=== PATIENT | female | born 1960 | race Hispanic/Latino ===

== ENCOUNTER 2020-10-26 02:52 | Inpatient (IN) | payer OTHER ==
[~2020-10-26] VITALS: Ht 149.9 cm; Wt 65.5 kg
[2020-10-26] MEDS ORDERED: KETOROLAC TROMETHAMINE 30 MG/ML VIAL IV STA (03:25)
[2020-10-26] MEDS ORDERED: ONDANSETRON HCL INJ 2MG/ML 2ML 2 MG/ML VIAL IV STA (03:25)
[2020-10-26] MEDS ORDERED: FAMOTIDINE 20 MG/2 ML VIAL IV STA (03:25)
[2020-10-26] MEDS ORDERED: KETOROLAC TROMETHAMINE 30 MG/ML VIAL ONE (03:29)
[2020-10-26] MEDS ORDERED: SODIUM CHLORIDE 0.9% 1000ML 1,000 ML ONE ×2 (03:29→07:29)
[2020-10-26] MEDS ORDERED: ONDANSETRON HCL INJ 2MG/ML 2ML 2 MG/ML VIAL ONE ×2 (03:29→10:49)
[2020-10-26] MEDS ORDERED: SODIUM CHLORIDE 0.9% 1000ML 1,000 ML IV SCH ×2 (03:30→04:30)
[2020-10-26] MEDS ORDERED: FAMOTIDINE 20 MG/2 ML VIAL IV ONE ×2 (03:32→10:49)
[2020-10-26] MEDS ORDERED: SODIUM CHLORIDE 0.9% 50ML 50 ML ONE (03:40)
[2020-10-26] MEDS ORDERED: IOPAMIDOL 370 MG/ML 200 ML INFUS..BTL INJ ONE (03:40)
[2020-10-26] MEDS ORDERED: MORPHINE SULFATE INJ 4 MG/ML INJ 1ML IV STA (03:47)
[2020-10-26] MEDS ORDERED: PROMETHAZINE 12.5MG/ NACL 0.9% 12.5 MG/50 ML BAG IV ONE (04:00)
[2020-10-26] MEDS ORDERED: KCL 20MEQ/.9 SOD CHL 1,000 ML IV SCH (04:00)
[2020-10-26] MEDS ORDERED: PROMETHAZINE HCL (IM) 25 MG/ML VIAL IM ONE ×2 (04:13→07:29)
[2020-10-26] MEDS ORDERED: POTASSIUM CHLORIDE 20MEQ/100ML 100 ML ONE (04:13)
[2020-10-26] MEDS ORDERED: MORPHINE SULFATE INJ 4 MG/ML INJ 1ML ONE ×2 (04:14→10:49)
[2020-10-26] MEDS ORDERED: POTASSIUM CHLORIDE 20MEQ/100ML 100 ML IV SCH (04:30)
[2020-10-26] MEDS ORDERED: MAGNESIUM SULFATE 2GM/50ML 50 ML IV ONE ×2 (05:15→05:18)
[2020-10-26] MEDS ORDERED: LIDOCAINE VISC 2% SOLN 15 ML UDC PO ONE (05:30)
[2020-10-26] MEDS ORDERED: DONNATAL/LIDOCAINE/MAALOX 30 ML SUSP PO ONE (05:30)
[2020-10-26] MEDS ORDERED: MAGNESIUM/ALUMINUM/SIMETHICONE 30 ML UDC PO ONE (05:30)
[2020-10-26] MEDS ORDERED: BELLADONNA ALK/PHENOBARBITAL 5 ML UDC PO ONE (05:30)
[2020-10-26] MEDS ORDERED: BELLADONNA ALK/PHENOBARBITAL 5 ML UDC ONE (05:59)
[2020-10-26] MEDS ORDERED: MAGNESIUM/ALUMINUM/SIMETHICONE 30 ML UDC ONE (05:59)
[2020-10-26] MEDS ORDERED: LIDOCAINE VISC 2% SOLN 15 ML UDC ONE (05:59)
[2020-10-26] MEDS ORDERED: ONDANSETRON ODT4 MG PO (06:05)
[2020-10-26] MEDS ORDERED: NEXIUM40 MG PO (06:06)
[2020-10-26] MEDS ORDERED: SUCRALFATE1 GM PO (06:07)
[2020-10-26] MEDS: PROMETHAZINE HCL (IM) 25 MG/ML VIAL IM PRN ×2 (07:20→13:33)
[2020-10-26] MEDS: MORPHINE SULFATE INJ 4 MG/ML INJ 1ML IV PRN ×4 (07:20→20:01)
[2020-10-26] MEDS ORDERED: MORPHINE SULFATE INJ 2 MG/ML SYR IV PRN (07:30)
[2020-10-26] MEDS ORDERED: DIPHENHYDRAMINE HCL INJ 50 MG/ML VIAL IV PRN (07:30)
[2020-10-26] MEDS: SODIUM CHLORIDE 0.9% 1000ML 1,000 ML IV SCH ×3 (07:40→21:00)
[2020-10-26 09:07] LABS: MAGNESIUM 2.5 MG/DL (1.3-2.1); POTASSIUM 3.2 mmol/L (3.5-5.1)
[2020-10-26 09:25] LABS: CREATINE KINASE MB 0.9 ng/mL (0-5.0)
[2020-10-26] MEDS: FAMOTIDINE 20 MG/2 ML VIAL IV SCH ×2 (10:42→16:09)
[2020-10-26] MEDS: ONDANSETRON HCL INJ 2MG/ML 2ML 2 MG/ML VIAL IV PRN (10:42)
[2020-10-26 12:29] VITALS: BP 155/64
[2020-10-26 12:55] VITALS: BP 155/64
[2020-10-26 13:11] VITALS: BP 155/64
[2020-10-26] MEDS ORDERED: HYDRALAZINE HCL 20 MG/ML VIAL IV PRN (14:45)
[2020-10-26] MEDS ORDERED: PROMETHAZINE 12.5MG/ NACL 0.9% 12.5 MG/50 ML BAG IV PRN (15:45)
[2020-10-26] MEDS ORDERED: LORAZEPAM INJ 2 MG/ML VIAL IV ONE (16:00)
[2020-10-26 16:09] VITALS: BP 153/74
[2020-10-26 19:20] VITALS: BP 153/63
[2020-10-26] MEDS: HYDROXYZINE HCL 25 MG TAB PO PRN (19:53)
[2020-10-26 22:42] VITALS: BP 153/63
[2020-10-27] VITALS (8 sets, daily range): BP systolic 93–116; BP diastolic 47–60
[2020-10-27] MEDS ORDERED: METOCLOPRAMIDE HCL 10 MG/2ML VIAL IV STA (00:40)
[2020-10-27] MEDS: MORPHINE SULFATE INJ 4 MG/ML INJ 1ML IV PRN ×5 (01:16→19:55)
[2020-10-27] MEDS: ONDANSETRON HCL INJ 2MG/ML 2ML 2 MG/ML VIAL IV PRN ×5 (01:17→19:55)
[2020-10-27 05:09] LABS: BASOPHILS # (AUTO) 0.1 (0.0-0.1); BASOPHILS % 1.4 % (0.0-1.0); EOSINOPHILS # (AUTO) 0.1 (0.0-0.4); EOSINOPHILS % 0.6 % (0.0-6.0); HEMATOCRIT 29.4 % (34.2-44.1); HEMOGLOBIN 9.3 g/dL (12.0-16.0); LYMPHOCYTES % 35.4 % (18.0-39.1); MEAN CORPUSCULAR HEMOGLOBIN 28.3 pg (28-32); MEAN CORPUSCULAR HGB CONC 31.6 g/dL (31-35); MEAN CORPUSCULAR VOLUME 89.4 fL (81-99); MONOCYTES # (AUTO) 0.8 (0.2-0.8); MONOCYTES % 9.8 % (4.4-11.3); NEUTROPHILS # (AUTO) 4.5 (2.1-6.9); NEUTROPHILS % 52.2 % (38.7-80.0); PLATELET COUNT 191 x10e3/uL (140-360); RED BLOOD COUNT 3.29 x10e6/uL (3.6-5.1); RED CELL DISTRIBUTION WIDTH 15.5 % (11.7-14.4)
[2020-10-27 05:45] LABS: AMYLASE 43 U/L (25-125); LIPASE 27 U/L (8-78)
[2020-10-27] MEDS: METOCLOPRAMIDE HCL 10 MG/2ML VIAL IV SCH ×3 (05:56→18:25)
[2020-10-27] MEDS: SODIUM CHLORIDE 0.9% 1000ML 1,000 ML IV SCH ×3 (05:56→20:08)
[2020-10-27 06:04] LABS: ALBUMIN 3.3 g/dL (3.5-5.0); ALBUMIN/GLOBULIN RATIO 1.1 (0.8-2.0); ANION GAP 11.3 mmol/L (8-16); CALCIUM 7.5 mg/dL (8.4-10.2); CREATININE, SERUM 0.71 mg/dL (0.57-1.11); POTASSIUM 3.3 mmol/L (3.5-5.1)
[2020-10-27] MEDS: FAMOTIDINE 20 MG/2 ML VIAL IV SCH ×2 (09:33→18:25)
[2020-10-27] MEDS ORDERED: PROPOFOL IV EMULSION 10 MG/ML 20 ML VIAL ONE (12:40)
[2020-10-27] MEDS ORDERED: LIDOCAINE HCL 2% LOCAL INJ 5 ML SDV VIAL INJ ONE (12:40)
[2020-10-27] MEDS ORDERED: FENTANYL CITRATE/PF 100MCG/2 ML INJ ONE (13:21)
[2020-10-27] MEDS ORDERED: MIDAZOLAM HCL 2 MG/2 ML VIAL ONE (13:21)
[2020-10-27] MEDS ORDERED: POTASSIUM CHLORIDE 10MEQ/100ML 100 ML IV STA (14:33)
[2020-10-27] MEDS: SUCRALFATE 1 GM/10 ML SUSP PO SCH (20:08)
[2020-10-28] VITALS (8 sets, daily range): BP systolic 90–139; BP diastolic 49–70
[2020-10-28] MEDS: MORPHINE SULFATE INJ 4 MG/ML INJ 1ML IV PRN ×5 (00:20→22:02)
[2020-10-28] MEDS: ONDANSETRON HCL INJ 2MG/ML 2ML 2 MG/ML VIAL IV PRN ×5 (00:20→22:02)
[2020-10-28] MEDS: SODIUM CHLORIDE 0.9% 1000ML 1,000 ML IV SCH ×3 (04:26→22:30)
[2020-10-28] MEDS: METOCLOPRAMIDE HCL 10 MG/2ML VIAL IV SCH ×4 (05:01→18:26)
[2020-10-28 06:05] LABS: BASOPHILS # (AUTO) 0.1 (0.0-0.1); BASOPHILS % 0.9 % (0.0-1.0); EOSINOPHILS # (AUTO) 0.1 (0.0-0.4); EOSINOPHILS % 0.9 % (0.0-6.0); HEMATOCRIT 26.2 % (34.2-44.1); HEMOGLOBIN 8.2 g/dL (12.0-16.0); LYMPHOCYTES # (AUTO) 2.7 (1.0-3.2); LYMPHOCYTES % 19.6 % (18.0-39.1); MEAN CORPUSCULAR HEMOGLOBIN 28.3 pg (28-32); MEAN CORPUSCULAR HGB CONC 31.3 g/dL (31-35); MEAN CORPUSCULAR VOLUME 90.3 fL (81-99); MONOCYTES % 7.3 % (4.4-11.3); NEUTROPHILS # (AUTO) 9.7 (2.1-6.9); NEUTROPHILS % 70.6 % (38.7-80.0); PLATELET COUNT 241 x10e3/uL (140-360); RED CELL DISTRIBUTION WIDTH 15.6 % (11.7-14.4)
[2020-10-28 06:25] LABS: ANION GAP 9.1 mmol/L (8-16); CALCIUM 7.1 mg/dL (8.4-10.2); CREATININE, SERUM 0.69 mg/dL (0.57-1.11); POTASSIUM 3.1 mmol/L (3.5-5.1)
[2020-10-28] MEDS: SUCRALFATE 1 GM/10 ML SUSP PO SCH ×4 (08:20→20:35)
[2020-10-28] MEDS: FAMOTIDINE 20 MG/2 ML VIAL IV SCH ×2 (09:37→17:37)
[2020-10-28] MEDS ORDERED: POTASSIUM CHLORIDE 10MEQ EA PO ONE (14:00)
[2020-10-28 14:31] LABS: % IRON SATURATION 5 % (15-50); IRON 20 ug/dL (50-170); TOTAL IRON BINDING CAPACITY 364 ug/dL (261-478); TRANSFERRIN 260 mg/dL (180-382)
[2020-10-28] MEDS: HYDROXYZINE HCL 25 MG TAB PO PRN (15:41)
[2020-10-29] MEDS: METOCLOPRAMIDE HCL 10 MG/2ML VIAL IV SCH ×3 (00:55→12:28)
[2020-10-29 01:12] VITALS: BP 112/55
[2020-10-29] MEDS: ONDANSETRON HCL INJ 2MG/ML 2ML 2 MG/ML VIAL IV PRN ×2 (05:15→10:59)
[2020-10-29] MEDS: MORPHINE SULFATE INJ 4 MG/ML INJ 1ML IV PRN ×2 (05:15→10:59)
[2020-10-29 05:55] VITALS: BP 119/65
[2020-10-29 06:14] LABS: BASOPHILS # (AUTO) 0.1 (0.0-0.1); BASOPHILS % 1.1 % (0.0-1.0); EOSINOPHILS # (AUTO) 0.2 (0.0-0.4); EOSINOPHILS % 2.4 % (0.0-6.0); HEMATOCRIT 27.7 % (34.2-44.1); HEMOGLOBIN 8.7 g/dL (12.0-16.0); LYMPHOCYTES # (AUTO) 2.6 (1.0-3.2); LYMPHOCYTES % 34.2 % (18.0-39.1); MEAN CORPUSCULAR HEMOGLOBIN 28.5 pg (28-32); MEAN CORPUSCULAR HGB CONC 31.4 g/dL (31-35); MEAN CORPUSCULAR VOLUME 90.8 fL (81-99); MONOCYTES # (AUTO) 0.7 (0.2-0.8); MONOCYTES % 9.3 % (4.4-11.3); NEUTROPHILS % 52.3 % (38.7-80.0); PLATELET COUNT 242 x10e3/uL (140-360); RED BLOOD COUNT 3.05 x10e6/uL (3.6-5.1); RED CELL DISTRIBUTION WIDTH 15.8 % (11.7-14.4)
[2020-10-29] MEDS: SODIUM CHLORIDE 0.9% 1000ML 1,000 ML IV SCH ×2 (06:30→14:30)
[2020-10-29 06:37] LABS: ANION GAP 8.2 mmol/L (8-16); CALCIUM 7.5 mg/dL (8.4-10.2); CREATININE, SERUM 0.68 mg/dL (0.57-1.11); POTASSIUM 3.2 mmol/L (3.5-5.1)
[2020-10-29 07:53] VITALS: BP 116/69
[2020-10-29] MEDS: SUCRALFATE 1 GM/10 ML SUSP PO SCH ×2 (08:26→12:28)
[2020-10-29] MEDS: HYDROXYZINE HCL 25 MG TAB PO PRN (08:26)
[2020-10-29] MEDS: FAMOTIDINE 20 MG/2 ML VIAL IV SCH (08:26)
[2020-10-29] MEDS ORDERED: IRON SUCROSE 100 MG in SODIUM CHLORIDE 0.9% 100 ML 100 ML IV SCH (09:00)
[2020-10-29 10:14] VITALS: BP 116/69
[2020-10-29 11:58] VITALS: BP 133/60
[2020-10-29] MEDS ORDERED: POTASSIUM CHLORIDE 10MEQ EA PO NR (14:00)
[2020-10-29] MEDS ORDERED: MORPHINE SULFATE INJ 2 MG/ML SYR IV PRN (14:00)
[2020-10-29] MEDS ORDERED: PANTOPRAZOLE SO40 MG PO (14:22)
[2020-10-29] MEDS ORDERED: SUCRALFATE1 GM PO (14:22)
[2020-10-29] MEDS ORDERED: FERROUS SULFAT325 M1 PO (14:43)
== END 2020-10-29 15:56 | disposition home or self-care (01) | DRG 392 ==
LOC: FSED 03:15 → ERHOLD 06:26 → MED/SURG3 12:20 → OBSVTOIN 10-28 14:00
PROVIDERS: ADMIT Internal Medicine; ATTEND Internal Medicine
PROC: 0DB68ZX Excision of Stomach, Via Natural or Artificial Opening Endoscopic, Diagnostic (ICD-10-PCS; principal; 2020-10-27 16:30)
DX: K29.70 Gastritis, unspecified, without bleeding (principal); K20.90 Esophagitis, unspecified without bleeding; K25.9 Gastric ulcer, unspecified as acute or chronic, without hemorrhage or perforation; E87.6 Hypokalemia; E83.42 Hypomagnesemia; I10 Essential (primary) hypertension; F41.9 Anxiety disorder, unspecified; D64.9 Anemia, unspecified; Z20.822 Contact with and (suspected) exposure to COVID-19
CPT/HCPCS: 36415; 43239; 74177; 80048; 80053; 80076; 81003; 82150; 82550; 82553; 82607; 82746; 83540; 83690; 83735; 84132; 84466; 84484; 85025; 88305; 88312; 93005; 96372; 99284; G0378; J1756; J1885; J2001; J2060; J2250; J2270; J2405; J2550; J2765; J3010; J3410; J3475; J3480; J7030; Q9967; U0002

== ENCOUNTER 2020-11-19 17:43 | Inpatient (IN) | payer OTHER ==
[~2020-11-19] VITALS: Ht 149.9 cm; Wt 59.0 kg
[~2020-11-19 17:43] MED LIST: FERROUS SULFAT325 M1 PO; NEXIUM40 MG PO; ONDANSETRON ODT4 MG PO; PANTOPRAZOLE SO40 MG PO; SUCRALFATE1 GM PO
[2020-11-19] MEDS ORDERED: ONDANSETRON HCL INJ 2MG/ML 2ML 2 MG/ML VIAL IV STA (22:31)
[2020-11-19] MEDS ORDERED: POTASSIUM CHLORIDE 20MEQ/100ML 100 ML IV ONE (22:45)
[2020-11-19] MEDS ORDERED: SODIUM CHLORIDE 0.9% 1000ML 1,000 ML IV SCH (22:45)
[2020-11-19] MEDS ORDERED: MAGNESIUM SULFATE 2GM/50ML 50 ML IV ONE ×2 (22:45→23:27)
[2020-11-19] MEDS ORDERED: POTASSIUM CHLORIDE 20 MEQ TAB CR PO ONE ×2 (22:45→23:26)
[2020-11-19] MEDS: KETOROLAC TROMETHAMINE 30 MG/ML VIAL IV PRN (23:15)
[2020-11-19] MEDS ORDERED: SODIUM CHLORIDE 0.9% 1000ML 1,000 ML ONE (23:27)
[2020-11-19] MEDS ORDERED: ONDANSETRON HCL INJ 2MG/ML 2ML 2 MG/ML VIAL ONE (23:27)
[2020-11-19] MEDS ORDERED: POTASSIUM CHLORIDE 20MEQ/100ML 100 ML ONE (23:28)
[2020-11-19] MEDS ORDERED: HYDROCODONE/APAP 5MG-325MG TAB ONE (23:59)
[2020-11-20] VITALS (8 sets, daily range): BP systolic 109–149; BP diastolic 64–83
[2020-11-20] MEDS ORDERED: HYDROCODONE/APAP 5MG-325MG TAB PO PRN
[2020-11-20] MEDS ORDERED: HYDROCODONE/APAP 5MG-325MG TAB PO ONE (02:00)
[2020-11-20] MEDS ORDERED: METOCLOPRAMIDE HCL 10 MG/2ML VIAL IV ONE (02:15)
[2020-11-20] MEDS ORDERED: DEXAMETHASONE SOD PHOS INJ 4 MG/ML VIAL IV ONE (02:15)
[2020-11-20] MEDS ORDERED: DIPHENHYDRAMINE HCL INJ 50 MG/ML VIAL IV ONE (02:15)
[2020-11-20] MEDS ORDERED: SODIUM CHLORIDE FLUSH 10 ML SYR INJ PRN (02:45)
[2020-11-20] MEDS ORDERED: KCL 20MEQ/.9 SOD CHL 1,000 ML IV SCH ×2 (02:45)
[2020-11-20] MEDS ORDERED: ONDANSETRON HCL INJ 2MG/ML 2ML 2 MG/ML VIAL IV PRN (02:45)
[2020-11-20] MEDS ORDERED: DEXAMETHASONE SOD PHOS INJ 4 MG/ML VIAL ONE (03:01)
[2020-11-20] MEDS ORDERED: METOCLOPRAMIDE HCL 10 MG/2ML VIAL ONE (03:01)
[2020-11-20] MEDS ORDERED: SODIUM CHLORIDE 0.9% 50ML 50 ML ONE (03:01)
[2020-11-20] MEDS ORDERED: DIPHENHYDRAMINE HCL INJ 50 MG/ML VIAL ONE (03:01)
[2020-11-20] MEDS ORDERED: SODIUM CHLORIDE 0.9% 250ML 250 ML ONE (05:00)
[2020-11-20] MEDS: POTASSIUM CHLORIDE 20MEQ/100ML 100 ML IV SCH ×2 (05:02→07:30)
[2020-11-20] MEDS: MORPHINE SULFATE INJ 4 MG/ML INJ 1ML IV PRN ×4 (05:50→20:08)
[2020-11-20] MEDS: KETOROLAC TROMETHAMINE 30 MG/ML VIAL IV PRN (08:09)
[2020-11-20] MEDS ORDERED: LOSARTAN-HCTZ1 EAC1 PO (08:13)
[2020-11-20] MEDS ORDERED: TRAZODONE HCL100 MG PO (08:13)
[2020-11-20] MEDS ORDERED: IBUPROFEN800 MG PO (08:13)
[2020-11-20] MEDS ORDERED: PANTOPRAZOLE SO40 MG PO (08:13)
[2020-11-20] MEDS ORDERED: PERCOCET 7.5-31 EACH PO (08:13)
[2020-11-20] MEDS ORDERED: LEXAPRO5 MG PO (08:14)
[2020-11-20] MEDS: PANTOPRAZOLE SOD 40 MG TABEC PO SCH ×2 (08:25→17:16)
[2020-11-20 10:47] LABS: BASOPHILS % 0.4 % (0.0-1.0); EOSINOPHILS % 0.4 % (0.0-6.0); HEMOGLOBIN 10.6 g/dL (12.0-16.0); LYMPHOCYTES % 10.5 % (18.0-39.1); MEAN CORPUSCULAR HEMOGLOBIN 27.9 pg (28-32); MEAN CORPUSCULAR HGB CONC 31.2 g/dL (31-35); MEAN CORPUSCULAR VOLUME 89.5 fL (81-99); MONOCYTES # (AUTO) 0.1 (0.2-0.8); NEUTROPHILS # (AUTO) 8.1 (2.1-6.9); NEUTROPHILS % 86.8 % (38.7-80.0); PLATELET COUNT 292 x10e3/uL (140-360); RED CELL DISTRIBUTION WIDTH 15.2 % (11.7-14.4)
[2020-11-20 11:05] LABS: CALCIUM 8.1 mg/dL (8.4-10.2); CREATININE, SERUM 0.69 mg/dL (0.57-1.11)
[2020-11-20 11:22] LABS: % IRON SATURATION 11 % (15-50); IRON 38 ug/dL (50-170); TOTAL IRON BINDING CAPACITY 346 ug/dL (261-478); TRANSFERRIN 247 mg/dL (180-382)
[2020-11-20] MEDS: SUCRALFATE 1 GM TAB PO SCH ×3 (12:06→20:08)
[2020-11-20] MEDS: IRON SUCROSE 100 MG in SODIUM CHLORIDE 0.9% 100 ML 100 ML IV SCH (15:29)
[2020-11-20] MEDS: POTASSIUM CHLORIDE 20 MEQ TAB CR PO SCH (17:16)
[2020-11-20] MEDS ORDERED: CALCIUM CARBONATE 500 MG CHEWABLE TABS PO PRN (19:00)
[2020-11-21] VITALS (8 sets, daily range): BP systolic 96–128; BP diastolic 54–68
[2020-11-21] MEDS: TRAZODONE HCL 50 MG TAB PO SCH ×2 (00:02→21:15)
[2020-11-21] MEDS: MORPHINE SULFATE INJ 4 MG/ML INJ 1ML IV PRN ×5 (00:08→21:15)
[2020-11-21 06:24] LABS: ANION GAP 11.4 mmol/L (8-16); CALCIUM 8.3 mg/dL (8.4-10.2); CREATININE, SERUM 0.73 mg/dL (0.57-1.11); POTASSIUM 3.4 mmol/L (3.5-5.1)
[2020-11-21] MEDS: POTASSIUM CHLORIDE 20 MEQ TAB CR PO SCH ×2 (07:41→16:31)
[2020-11-21] MEDS: PANTOPRAZOLE SOD 40 MG TABEC PO SCH ×2 (07:41→16:31)
[2020-11-21] MEDS: SUCRALFATE 1 GM TAB PO SCH ×4 (07:41→21:15)
[2020-11-21] MEDS ORDERED: POTASSIUM CHLORIDE 20 MEQ TAB CR PO NR ×2 (09:01→11:30)
[2020-11-21] MEDS: ONDANSETRON HCL INJ 2MG/ML 2ML 2 MG/ML VIAL IV PRN ×2 (11:37→16:40)
[2020-11-21] MEDS: IRON SUCROSE 100 MG in SODIUM CHLORIDE 0.9% 100 ML 100 ML IV SCH (12:42)
[2020-11-22 00:40] VITALS: BP 105/65
[2020-11-22] MEDS: MORPHINE SULFATE INJ 4 MG/ML INJ 1ML IV PRN ×3 (01:13→11:42)
[2020-11-22 04:00] VITALS: BP 94/51
[2020-11-22 05:32] LABS: ANION GAP 10.3 mmol/L (8-16); CALCIUM 7.9 mg/dL (8.4-10.2); CREATININE, SERUM 0.73 mg/dL (0.57-1.11); POTASSIUM 4.3 mmol/L (3.5-5.1)
[2020-11-22 07:58] VITALS: BP 102/51
[2020-11-22 08:11] VITALS: BP 102/51
[2020-11-22] MEDS: SUCRALFATE 1 GM TAB PO SCH ×2 (09:22→11:40)
[2020-11-22] MEDS: POTASSIUM CHLORIDE 20 MEQ TAB CR PO SCH (09:23)
[2020-11-22] MEDS: PANTOPRAZOLE SOD 40 MG TABEC PO SCH (09:23)
[2020-11-22] MEDS ORDERED: PRILOSEC OTC20 MG PO (11:47)
[2020-11-22] MEDS ORDERED: ACETAMINOPHEN-1 EAC4 PO (11:50)
[2020-11-22] MEDS ORDERED: KLOR-CON M2020 MEQ PO (11:50)
[2020-11-22 12:20] VITALS: BP 103/52
[2020-11-22] MEDS ORDERED: ONDANSETRON HCL 4 MG ORAL DISINTEGRATING TAB PO PRN (12:30)
== END 2020-11-22 13:25 | disposition home or self-care (01) | DRG 641 ==
LOC: FSED 18:15 → ERHOLD 11-20 02:38 → MED/SURG 11-20 04:14
PROVIDERS: ADMIT Internal Medicine; ATTEND Internal Medicine
DX: E87.6 Hypokalemia (principal); G72.3 Periodic paralysis; K29.70 Gastritis, unspecified, without bleeding; D50.9 Iron deficiency anemia, unspecified; I10 Essential (primary) hypertension; K21.9 Gastro-esophageal reflux disease without esophagitis; Z90.49 Acquired absence of other specified parts of digestive tract; F41.9 Anxiety disorder, unspecified; G89.29 Other chronic pain; K20.90 Esophagitis, unspecified without bleeding; R51.9 Headache, unspecified
CPT/HCPCS: 36415; 80048; 80053; 81003; 83540; 83735; 84439; 84443; 84466; 84481; 85025; 86376; 99284; J1100; J1200; J1756; J2270; J2405; J2765; J3475; J3480; J7030; J7050; U0002

== ENCOUNTER 2023-10-15 21:46 | Emergency (ER) | payer OTHER ==
[~2023-10-15] VITALS: Ht 149.9 cm; Wt 62.6 kg
[~2023-10-15 21:46] MED LIST changes: +ACETAMINOPHEN-1 EAC4 PO; +COLACE100 M1 PO; +IBUPROFEN800 MG PO; +KLOR-CON M2020 MEQ PO; +LEXAPRO5 MG PO; +LOSARTAN-HCTZ1 EAC1 PO; +MAGNESIUM CITR296 ML PO; +PERCOCET 7.5-31 EACH PO; +PRILOSEC OTC20 MG PO; +TRAZODONE HCL100 MG PO
[2023-10-15 21:52] VITALS: PULSE 97; RESP 18; TEMP 97.8
[2023-10-15] MEDS: SODIUM CHLORIDE 0.9% 1000ML 1,000 ML IV STA (22:20)
[2023-10-15] MEDS: ONDANSETRON HCL INJ 2MG/ML 2ML 2 MG/ML VIAL IV ONE (22:21)
[2023-10-15] MEDS: KETOROLAC TROMETHAMINE 30 MG/ML VIAL IV ONE (22:21)
[2023-10-15] MEDS: FAMOTIDINE 20 MG/2 ML VIAL IV ONE (22:21)
[2023-10-16] MEDS ORDERED: MAALOX MAXIMUM355 ML PO (00:36)
[2023-10-16] MEDS ORDERED: OMEPRAZOLE40 MG PO (00:36)
[2023-10-16 00:37] VITALS: BP 152/76; PULSE 4; RESP 18; TEMP 97.8; O2SAT 100
== END 2023-10-16 00:43 | disposition home or self-care (01) ==
LOC: FSED 21:51
DX: K29.70 Gastritis, unspecified, without bleeding (principal); I10 Essential (primary) hypertension; F41.9 Anxiety disorder, unspecified; F17.200 Nicotine dependence, unspecified, uncomplicated; Z79.1 Long term (current) use of non-steroidal anti-inflammatories (NSAID); Z90.49 Acquired absence of other specified parts of digestive tract
CPT/HCPCS: 74176; 80048; 80076; 81003; 85025; 96374; 96375; 99284; J1885; J2405; J7030

== ENCOUNTER 2024-09-22 21:31 | Emergency (ER) | payer OTHER ==
[~2024-09-22] VITALS: Ht 149.9 cm; Wt 59.9 kg
[~2024-09-22 21:31] MED LIST changes: +MAALOX MAXIMUM355 ML PO; +OMEPRAZOLE40 MG PO
[2024-09-22] MEDS: SODIUM CHLORIDE 0.9% 1000ML 1,000 ML IV ONE (22:05)
[2024-09-22] MEDS: LORAZEPAM INJ 2 MG/ML VIAL IV ONE ×2 (22:05→23:11)
[2024-09-22] MEDS ORDERED: ATIVAN1 MG PO ×2 (23:42→23:44)
[2024-09-22 23:44] VITALS: PULSE 77; RESP 19; TEMP 99.4
[2024-09-22 23:45] VITALS: BP 185/78; PULSE 77; RESP 19; TEMP 99.4; O2SAT 98
== END 2024-09-22 23:50 | disposition home or self-care (01) ==
LOC: FSED 21:40
DX: F41.0 Panic disorder [episodic paroxysmal anxiety] (principal); F41.9 Anxiety disorder, unspecified; F17.210 Nicotine dependence, cigarettes, uncomplicated
CPT/HCPCS: 96374; 99283; J2060; J7030